=== PATIENT | female | born 1965 | race Two or more races ===

== ENCOUNTER 2024-07-17 11:43 | Inpatient (IN) | payer OTHER ==
[~2024-07-17] VITALS: Ht 165.1 cm; Wt 66.7 kg
[2024-07-17] MEDS ORDERED: ZESTRIL5 MG PO (12:30)
[2024-07-17] MEDS ORDERED: GLUMETZA500 MG PO (12:30)
[2024-07-17 12:31] VITALS: BP 116/72
[2024-07-17] MEDS ORDERED: ROSUVASTATIN CAL5 MG PO (12:31)
[2024-07-28] MEDS ORDERED: METRONIDAZOLE/SODIUM CHLORIDE 500 MG/100 ML PIGGYBACK IV ONE (07:21)
[2024-07-28] MEDS ORDERED: LIDOCAINE HCL 1%/EPINEPHRINE 20ML VIAL IJ ONE (07:33)
[2024-07-28] MEDS ORDERED: BUPIVACAINE HCL/MPF 0.5% 30ML VIAL ONE (07:33)
[2024-07-28] MEDS ORDERED: MORPHINE SULFATE 4 MG/ML VIAL IV ONE (11:05)
[2024-07-28] MEDS ORDERED: METRONIDAZOLE/SODIUM CHLORIDE 500 MG/100 ML PIGGYBACK IV SCH (12:33)
[2024-07-28] MEDS ORDERED: MORPHINE SULFATE 4 MG/ML CARTRIDGE IV PRN (12:45)
[2024-07-28] MEDS ORDERED: OxyCODONE HCL 5 MG TABLET (ROXICODONE) PO PRN (12:45)
[2024-07-28] MEDS ORDERED: ONDANSETRON HCL 2 MG/ML VIAL IV PRN (12:45)
[2024-07-28] MEDS ORDERED: RINGERS SOLUTION,LACTATED 1,000 ML IV SCH (12:45)
[2024-07-28] MEDS ORDERED: HYOSCYAMINE SULFATE 0.125 MG TAB.SUBL SL SCH (13:00)
[2024-07-28] MEDS ORDERED: LACTOBACILLUS ACIDOPHILUS 1 CAP CAP PO NR (13:00)
[2024-07-28] MEDS ORDERED: DEXTROSE 50 % IN WATER 0.5 G/ML DISP.SYRIN IV PRN (14:15)
[2024-07-28] MEDS ORDERED: INSULIN LISPRO 1,000 UNIT/10 ML UNITS SUBCUTANEO PRN (14:15)
[2024-07-28 16:00] VITALS: BP 132/76; O2SAT 96
[2024-07-28] MEDS ORDERED: GABAPENTIN 300 MG CAPSULE PO SCH (17:00)
[2024-07-28] MEDS ORDERED: TAMSULOSIN HCL 0.4 MG CAP PO SCH (17:00)
[2024-07-28] MEDS ORDERED: ACETAMINOPHEN 500 MG GEL..CAP PO SCH (18:00)
[2024-07-28] MEDS ORDERED: FAMOTIDINE/PF 20 MG/2 ML VIAL IV PUSH SCH (21:00)
[2024-07-28] MEDS ORDERED: CIPROFLOXACIN IN 5 % DEXTROSE 400 MG/200 ML PIGGYBAG IV SCH (21:00)
[2024-07-28] MEDS ORDERED: LISINOPRIL 5 MG TABLET PO SCH (21:00)
[2024-07-29 01:32] VITALS: BP 121/71; O2SAT 95
[2024-07-29 08:00] VITALS: BP 121/51
[2024-07-29 08:43] LABS: HEMATOCRIT 35.5 % (36.0-45.00); HEMOGLOBIN 12.3 g/dL (12.0-15.00); MEAN CELL VOLUME 92.5 fL (80.00-100.00); MEAN CORPUSCULAR HEMOGLOBIN 32.1 pg (27.00-32.0); MEAN CORPUSCULAR HGB CONC 34.7 g/dl (32.0-36.0); PLATELET COUNT 221 K/uL (150-450); RED BLOOD COUNT 3.84 M/uL (4.00-6.00); RED CELL DISTRIBUTION WIDTH 13.1 % (11.5-14.5)
[2024-07-29] MEDS ORDERED: LACTOBACILLUS ACIDOPHILUS 1 CAP CAP PO SCH (09:00)
[2024-07-29 09:22] LABS: ALBUMIN 3.2 gm/dL (3.4-5.0); CALCIUM 8.8 mg/dL (8.5-10.1); CREATININE SERUM 0.52 mg/dL (0.55-1.02); GFR 121.54; MAGNESIUM 1.5 mg/dL (1.8-2.4); PHOSPHOROUS 2.8 mg/dL (2.5-4.9); POTASSIUM 3.93 mEq/L (3.5-5.1)
[2024-07-29] MEDS ORDERED: MAGNESIUM SULFATE/D5W 100 ML IV NR (12:45)
[2024-07-29 16:00] VITALS: BP 129/76; O2SAT 95
[2024-07-29] MEDS ORDERED: ENOXAPARIN SODIUM 40 MG/0.4 ML SYRINGE SUBCUTANEO SCH (17:00)
[2024-07-30 02:03] VITALS: BP 121/72; O2SAT 95
[2024-07-30 08:00] VITALS: BP 111/69; O2SAT 95
[2024-07-30] MEDS ORDERED: ENOXAPARIN SODIUM 40 MG/0.4 ML SYRINGE SUBCUTANEO SCH (09:00)
[2024-07-30] MEDS ORDERED: MAGNESIUM SULFATE/D5W 100 ML IV NR (14:30)
[2024-07-30 16:00] VITALS: BP 121/76; O2SAT 96
[2024-07-30] MEDS ORDERED: CELECOXIB 200 MG CAPSULE PO SCH (17:00)
[2024-07-31 01:24] VITALS: BP 107/69; O2SAT 95
[2024-07-31 08:00] VITALS: BP 124/74; O2SAT 97
[2024-07-31] MEDS ORDERED: HYOSCYAMINE0.125 M1 SL (14:58)
[2024-07-31] MEDS ORDERED: GABAPENTIN300 MG PO (14:59)
[2024-07-31] MEDS ORDERED: CELEBREX200MG PO (14:59)
[2024-07-31] MEDS ORDERED: INTESTINEX680 M1 PO (14:59)
== END 2024-07-31 15:24 | disposition home or self-care (01) | DRG 331 ==
LOC: O/R 07-28 05:05 → EDSTATUS 07-28 07:00 → SURH 07-28 07:00 → CIR.AMB 07-28 07:00 → SURG 07-28 12:25
PROVIDERS: ADMIT Surgery; ATTEND Surgery
PROC: 0DBP4ZZ Excision of Rectum, Percutaneous Endoscopic Approach (ICD-10-PCS; 2024-07-28)
PROC: 0DJD8ZZ Inspection of Lower Intestinal Tract, Via Natural or Artificial Opening Endoscopic (ICD-10-PCS; 2024-07-28)
PROC: 0DTN4ZZ Resection of Sigmoid Colon, Percutaneous Endoscopic Approach (ICD-10-PCS; principal; 2024-07-28 07:00)
DX: K57.30 Diverticulosis of large intestine without perforation or abscess without bleeding (principal); R19.4 Change in bowel habit

== ENCOUNTER 2024-09-05 16:09 | Emergency (ER) | payer OTHER ==
[~2024-09-05] VITALS: Ht 165.1 cm; Wt 63.5 kg
[~2024-09-05 16:09] MED LIST: CELEBREX200MG PO; GABAPENTIN300 MG PO; GLUMETZA500 MG PO; HYOSCYAMINE0.125 M1 SL; INTESTINEX680 M1 PO; ROSUVASTATIN CAL5 MG PO; ZESTRIL5 MG PO
[2024-09-05 18:08] LABS: PH,URINE 5.5 (5.0-8.0); URINE APPEARANCE Clear; URINE BILIRRUBIN Negative (NEGATIVE); URINE BLOOD Negative; URINE COLOR Yellow; URINE GLUCOSE Negative (NEGATIVE); URINE KETONE Negative (NEGATIVE); URINE LEUKOCYTE Negative; URINE NITRATE Negative; URINE PROTEIN Negative (NEGATIVE); URINE UROBILINOGEN 0.2 E.U./dl
[2024-09-05 18:14] LABS: URINE BACTERIA 9.7 uL (0.0-1933); URINE EPITHELIAL CELLS 1.7 uL (0.0-38.8); URINE RBC 4.1 uL (0.0-20.8)
[2024-09-05 18:24] LABS: URINE WBC 0.3 uL (0.0-23.2)
[2024-09-05 18:29] LABS: ALBUMIN 4.3 gm/dL (3.4-5.0); BILIRUBIN TOTAL 0.32 mg/dL (0.3-1.2); CALCIUM 9.7 mg/dL (8.5-10.1); CREATININE SERUM 0.68 mg/dL (0.55-1.02); GFR 89.18; GLOBULINA 4.6 G/DL (2.4-3.5); TOTAL PROTEIN 8.9 gm/dL (6.4-8.2)
[2024-09-05 18:49] LABS: HEMATOCRIT 41.3 % (36.0-45.00); HEMOGLOBIN 14.3 g/dL (12.0-15.00); MEAN CORPUSCULAR HGB CONC 34.8 g/dl (32.0-36.0); PLATELET COUNT 246 K/uL (150-450); RED BLOOD COUNT 4.48 M/uL (4.00-6.00); RED CELL DISTRIBUTION WIDTH 13.1 % (11.5-14.5)
[2024-09-05 18:52] LABS: POTASSIUM 4.58 mEq/L (3.5-5.1)
== END 2024-09-05 22:21 | disposition home or self-care (01) ==
LOC: ER 16:12
PROVIDERS: Emergency Medicine
DX: R10.32 Left lower quadrant pain (principal); I10 Essential (primary) hypertension; Z88.0 Allergy status to penicillin